=== PATIENT | female | born 1970 | race Caucasian/White ===

== ENCOUNTER → 2018-09-05 | Outpatient (CLI) | payer BC ==
--- NOTE | 2018-09-05 13:13 | PCVCIMAG ---
APPROVED REPORT Study performed: 09/05/2018 10:19:47 Exam: Stress Echocardiogram Indication: chest pain, hyperlipidemia, fam hx cad Patient Location: Echo lab Stress Nurse: Christi Francis RN Status: routine Ht: 5 ft 3 in HR: 95 bpm BP: 160/100 mmHg Rhythm: NSR Medical History Medical History: Hyperlipidemia Exercise History: Physically active Procedure The patient underwent an Exercise Stress Test using the Chapo Protocol. Blood pressure, heart rate, and EKG were monitored. An Echocardiogram was performed by emergency response technician in four stages in quad fashion. At peak stress, four selected images were obtained and placed side by side with resting images for comparison. Stress Test Details Stress Test: Exercise stress testing was performed using a Chapo protocol. HR Resting HR: 95 bpmMax Heart Rate (APMHR): 172 bpm Max HR Achieved: 179 bpmTarget HR (85% APMHR): 146 bpm % of APMHR: 104 Recovery HR: 105 bpm HR response to stress: Normal HR response to stress BP Resting BP: 160/100 mmHg Max BP: 180/88 mmHg Recovery BP: 150/82 mmHg BP response to stress: Normal blood pressure response to stress. ECG Resting ECG: Sinus Rhythm Stress ECG: Sinus Rhythm Recovery ECG: Sinus Rhythm Clinical Reason for Termination: Maximal effort Exercise duration: 7 min sec Highest Stage Achieved: Stage 3: 3.4 mph at 14% grade. Exercise capacity: 10.10 METs Overall Exercise Capacity for Age: Normal Stress ECG Conclusion 1. Subjectively negative for ischemia 2. Elective cardiographic clean negative for ischemia 3. Reduced functional capacity Pre-Stress Echo The resting Echocardiogram showed normal left ventricular contractility with an estimated Ejection Fraction of about 55-60%. Normal wall motion in all segments on baseline images. Post-Stress Echo The stress Echocardiogram showed normal left ventricular contractility with an estimated Ejection Fraction of about 60-65%. Normal augmentation of wall motion in all segments on post stress images. Clinical No clinical or ECG evidence for ischemia. Conclusion Clinical Response: Non-ischemic Exercise Capacity: Average Stress ECG Response: Non-ischemic Stress Echo Images: Non-ischemic The left ventricle is normal in size and wall thickness in both the rest and stress images. Mild mitral valve prolapse, with trivial to mild regurgitation. 1. Low risk study Other Information Study Quality: Good <Conclusion> The left ventricle is normal in size and wall thickness in both the rest and stress images. Mild mitral valve prolapse, with trivial to mild regurgitation. 1. Low risk study
== END | disposition home or self-care (01) ==
LOC: PCVCIMAG 15:28
PROVIDERS: ATTEND Internal Medicine
DX: I34.1 Nonrheumatic mitral (valve) prolapse (principal); I34.0 Nonrheumatic mitral (valve) insufficiency; Z82.49 Family history of ischemic heart disease and other diseases of the circulatory system
CPT/HCPCS: 93325; 93351